=== PATIENT | male | born 1940 | race Caucasian/White ===

== ENCOUNTER 2019-06-19 13:27 | Emergency (ER) | payer MEDICARE, MEDICAID ==
--- NOTE | 2019-06-19 14:07 | ER Document Report ---
ED Psych Disorder / Suicide - General Mode of Arrival: Medic Information source: Patient, Transfer Record TRAVEL OUTSIDE OF THE [place] IN LAST 30 DAYS: No - HPI Patient complains to provider of: Suicidal attempt Onset: Just prior to arrival Onset was: Sudden Quality of pain: No pain Pain Level: Denies Suicide Risk Factors: Age >65, Depressed Suicide Attempt Method: Hanging Associated symptoms: Normal affect, Normal mood Similar symptoms previously: No Recently seen / treated by doctor: No - Related Data Home Medications: SEE MAR <SALMA PETE - Last Filed: 06/19/19 23:02> <KENDRICKRADHAJOANNE - Last Filed: 06/20/19 06:02> <TROY ETIENNE - Last Filed: 06/20/19 13:37> <COURTNEY CHRISTIAN - Last Filed: 06/20/19 15:17> - General Chief Complaint: Suicidal Ideation Stated Complaint: SUICIDAL IDEATION Time Seen by Provider: 06/19/19 13:44 Primary Care Provider: ZAC BERG MD [Primary Care Provider] - Follow up as needed Notes: Patient presents from [facility] after threatening to harm himself. Patient was found with a call light cord wrapped around his neck. Patient states that he became angry because staff were ignoring him and they were not responding to his calls. Patient presently denies any suicidal or homicidal ideation. (SALMA EPTE) - Related Data Allergies/Adverse Reactions: acetaminophen [From Tylenol] Allergy (Verified 06/19/19 13:42) oxycodone Allergy (Verified 06/19/19 13:42) tramadol Allergy (Verified 06/19/19 13:42) Past Medical History - General Information source: Patient, Transfer Record Cannot obtain history due to: Other - pt soft spoken, diff to understand - Social History Smoking Status: Never Smoker Chew tobacco use (# tins/day): No Frequency of alcohol use: None Drug Abuse: None Lives with: Group Home Patient has suicidal ideation: Yes Patient has homicidal ideation: No - Medical History Medical History: Other - dementia GI Medical History: Reports: Other - prostate Ca Musculoskeletal Medical History: Reports Other - parkinson Past Surgical History: Reports: Hx Colostomy <SALMA PETE - Last Filed: 06/19/19 23:02> - Social History Family History: Reviewed & Not Pertinent <COURTNEY CHRISTIAN - Last Filed: 06/20/19 15:17> Review of Systems - Review of Systems Constitutional: No symptoms reported EENT: No symptoms reported Cardiovascular: No symptoms reported Respiratory: No symptoms reported Gastrointestinal: No symptoms reported Genitourinary: No symptoms reported Male Genitourinary: No symptoms reported Musculoskeletal: No symptoms reported Skin: No symptoms reported Hematologic/Lymphatic: No symptoms reported Neurological/Psychological: No symptoms reported <JUAN RSALMA Mabry - Last Filed: 06/19/19 23:02> Physical Exam - General General appearance: Appears well, Alert In distress: None - HEENT Head: Normocephalic, Atraumatic Eyes: Normal Conjunctiva: Normal Nasal: Normal Mouth/Lips: Normal Neck: Normal, Supple, Other - No evidence of trauma to anterior neck, no ligature archer. No: Lymphadenopathy - Respiratory Respiratory status: No respiratory distress Chest status: Nontender Breath sounds: Normal. No: Rales, Rhonchi, Stridor, Wheezing Chest palpation: Normal - Cardiovascular Rhythm: Regular Heart sounds: S1 appreciated, S2 appreciated Murmur: No - Abdominal Inspection: Obese, Other - Colostomy Distension: No distension Bowel sounds: Normal Tenderness: Nontender Organomegaly: No organomegaly - Back Back: Normal, Nontender. No: CVA tenderness - Extremities General upper extremity: Normal inspection General lower extremity: Normal inspection - Neurological Neuro grossly intact: Yes Cognition: Normal Douglas Coma Scale Eye Opening: Spontaneous [place]bert Coma Scale Verbal: Oriented Douglas Coma Scale Motor: Obeys Commands Douglas Coma Scale Total: 15 Speech: Other - Speaks with a very soft tone of voice - Psychological Associated symptoms: Normal affect, Normal mood - Skin Skin Temperature: Warm Skin Moisture: Dry Skin Color: Normal <SALMA PETE - Last Filed: 06/19/19 23:02> - Vital signs Vitals: Temp Pulse Resp BP Pulse Ox 98.6 F 62 15 146/58 H 96 06/19/19 13:55 06/19/19 13:55 06/19/19 13:55 06/19/19 13:55 06/19/19 13:55 Course - Laboratory Result Diagrams: 06/19/19 15:36 06/19/19 15:36 <SALMA PETE - Last Filed: 06/19/19 23:02> - Laboratory Result Diagrams: 06/19/19 15:36 06/19/19 15:36 <JOANNE CARR - Last Filed: 06/20/19 06:02> - Laboratory Result Diagrams: 06/19/19 15:36 06/19/19 15:36 <TROY ETIENNE - Last Filed: 06/20/19 13:37> - Laboratory Result Diagrams: 06/19/19 15:36 06/19/19 15:36 <COURTNEY CHRISTIAN - Last Filed: 06/20/19 15:17> - Re-evaluation Re-evalutation: 06/19/19 17:02 Medication recommendations received from mental health team to include clonidine 0.1 mg p.o. twice daily and Depakote 250 mg p.o. twice daily. Patient can continue his carbidopa levodopa as well as ropinirole. Mental health team plans to keep patient overnight and to reevaluate tomorrow. 06/19/19 21:50 Patient medically clear for discharge or transfer pending mental health evaluation at this time. (SALMA PETE) 06/20/19 06:02 Patient became extremely agitated, aggressive, swinging at staff, staff is asked multiple times for sedating medication. Patient cannot receive antipsychotic medications because of his dopamine agonist situation with Parkinson/Lewy body dementia. Discussed with Dr. Lai, he recommends patient receive 1 mg IM Ativan. (JOANNE CARR) - Vital Signs Vital signs: Temp Pulse Resp BP Pulse Ox 97.6 F 54 L 18 124/66 97 06/20/19 10:32 06/20/19 10:32 06/20/19 05:08 06/20/19 10:32 06/20/19 10:32 - Laboratory Laboratory results interpreted by me: 06/19/19 06/19/19 06/19/19 15:36 15:36 16:44 Hgb 12.9 L RDW 14.3 H Plt Count 134 L Chloride 109 H BUN 30 H Glucose 115 H Urine Ketones TRACE H Urine Blood MODERATE H Salicylates < 1.0 L Acetaminophen < 10 L Labs- Entire Visit 06/19/19 06/19/19 06/19/19 15:36 15:36 16:44 WBC 6.1 RBC 4.62 Hgb 12.9 L Hct 38.2 MCV 83 MCH 27.9 MCHC 33.7 RDW 14.3 H Plt Count 134 L Lymph % (Auto) 18.5 [place] % (Auto) 8.2 Eos % (Auto) 3.0 Baso % (Auto) 0.6 Absolute Neuts (auto) 4.3 Absolute Lymphs (auto) 1.1 Absolute Monos (auto) 0.5 Absolute Eos (auto) 0.2 Absolute Basos (auto) 0.0 Seg Neutrophils % 69.7 Sodium 141.1 Potassium 4.1 Chloride 109 H Carbon Dioxide 24 Anion Gap 8 BUN 30 H Creatinine 0.85 Est GFR ( Amer) > 60 Est GFR (MDRD) Non-Af > 60 Glucose 115 H Calcium 8.7 Total Bilirubin 0.6 Direct Bilirubin 0.2 Neonat Total Bilirubin Not Reportable Neonat Direct Bilirubin Not Reportable Neonat Indirect Bili Not Reportable AST 21 ALT 18 Alkaline Phosphatase 65 Total Protein 6.7 Albumin 3.5 Urine Color YELLOW Urine Appearance TURBID Urine pH 5.0 Ur Specific [place] 1.021 Urine Protein NEGATIVE Urine Glucose (UA) NEGATIVE Urine Ketones TRACE H Urine Blood MODERATE H Urine Nitrite NEGATIVE Urine Bilirubin NEGATIVE Urine Urobilinogen NEGATIVE Ur Leukocyte Esterase NEGATIVE Urine RBC (Auto) 2 Amorphous Sediment Auto TRACE Urine Mucus (Auto) RARE Urine Ascorbic Acid NEGATIVE Salicylates < 1.0 L Urine Opiates Screen Urine Methadone Screen Acetaminophen < 10 L Ur Barbiturates Screen Ur Phencyclidine Scrn Ur Amphetamines Screen U Benzodiazepines Scrn Urine Cocaine Screen U Marijuana (THC) Screen Serum Alcohol < 10 06/19/19 16:44 WBC RBC Hgb Hct MCV MCH MCHC RDW Plt Count Lymph % (Auto) [place] % (Auto) Eos % (Auto) Baso % (Auto) Absolute Neuts (auto) Absolute Lymphs (auto) Absolute Monos (auto) Absolute Eos (auto) Absolute Basos (auto) Seg Neutrophils % Sodium Potassium Chloride Carbon Dioxide Anion Gap BUN Creatinine Est GFR ( Amer) Est GFR (MDRD) Non-Af Glucose Calcium Total Bilirubin Direct Bilirubin Neonat Total Bilirubin Neonat Direct Bilirubin Neonat Indirect Bili AST ALT Alkaline Phosphatase Total Protein Albumin Urine Color Urine Appearance Urine pH Ur Specific [place] Urine Protein Urine Glucose (UA) Urine Ketones Urine Blood Urine Nitrite Urine Bilirubin Urine Urobilinogen Ur Leukocyte Esterase Urine RBC (Auto) Amorphous Sediment Auto Urine Mucus (Auto) Urine Ascorbic Acid Salicylates Urine Opiates Screen NEGATIVE Urine Methadone Screen NEGATIVE Acetaminophen Ur Barbiturates Screen NEGATIVE Ur Phencyclidine Scrn NEGATIVE Ur Amphetamines Screen NEGATIVE U Benzodiazepines Scrn NEGATIVE Urine Cocaine Screen NEGATIVE U Marijuana (THC) Screen NEGATIVE Serum Alcohol (SALMA PETE) Discharge <SALMA PETE - Last Filed: 06/19/19 23:02> <JOANNE CARR - Last Filed: 06/20/19 06:02> <TROY ETIENNE - Last Filed: 06/20/19 13:37> <COURTNEY CHRISTIAN - Last Filed: 06/20/19 15:17> - Discharge Clinical Impression: Suicidal ideation Condition: Stable Disposition: HOME, SELF-CARE Additional Instructions: You have been evaluated by both medical and behavioral health teams for suicidal ideation and have been deemed appropriate for discharge. While in the emergency department you received the following services: Medical screening and assessment, nursing services, dietary services, pharmacological services, one-on-one counseling and/or psychotherapy, environmental services, and continuous observation by a patient occupational health and safety adviser. Medication recommendations have been provided and are as follows: please continue home medications; please continue to take Depakote 250MG, twice a day; and please continue to take Clonidine 0.1, twice a day. You are being returned to the care of your assisted living facility, [facility]. Please follow up with a mental health provider for medication management. AT ANY TIME, IF YOUR SYMPTOMS CHANGE SIGNIFICANTLY OR WORSEN OR YOU DEVELOP NEW SYMPTOMS, RETURN TO THE EMERGENCY DEPARTMENT IMMEDIATELY FOR RE-EVALUATION. Prescriptions: Clonidine HCl [Catapres 0.1 mg Tablet] 0.1 mg PO Q12 #20 tablet Divalproex Sodium [Depakote] 250 mg PO BID #20 tablet. Referrals: ZAC BERG MD [Primary Care Provider] - Follow up as needed
--- NOTE | 2019-06-19 15:37 | PSYCHOLOGICAL NOTE ---
Psych Note - Psych Note Date seen by psych provider: 06/19/19 Time seen by psych provider: 14:15 Psych Note: Reason for Consult: Suicidal ideation Clinician attempted evaluation. Patient is extremely difficult to understand. He attempts to communicate; unfortunately, only one word in about 30 can be understood. It appears the patient is stating he was upset because he was calling staff and they did not come. He confirmed he wrapped the call childress around his neck but denies wanting to . He attempted to provided history and medications; however, clinician could only understand "Parkinson's.... 25 years.... Requip." Review of documentation sent over by [facility] Aramb[facility] indicates the patient has a diagnosis of dementia with Lewy bodies, Colotomy, Parkinson's disease, prostate cancer, Major depressive disorder; recurrent, chronic pain, always disorientat ed,history of falling, difficulty walking and extreme difficult with speech. Patient reportedly has a neurostimulator. Current medications include Sinemet 25-250mg four times daily for Parkinson Requip 4mg twice daily for restless leg Inbrija Capsule 42mg -2 capsule inhale orally as needed for symptoms of Parkinson- do not exceed 5 doses (10 capsules) in 24 hours Clinician contacted [facility] and spoke with attending morning nurse, Rupal. She reports that the patient was agitated all morning and even cursed out staff and kicked him out of the room. They continue to make frequent trips into the room to check on him. The last time they went in they found the patient with his call childress wrapped around his neck and he stated "jump." She states that he later reported that he thought if he did something like this he be taken more seriously. She reports she does not know if it this is for attention however the patient's did report she has noticed an increase in depression recently. She disclosed that upon cleaning the patient's room to ensure it was safe when the patient returned she found a bag of rocks only 50 different types of pills. There is concern that the is providing medications to the patient that he is not prescribed and/or overmedicating. Clinician contacted the patient , Amie. She reports she had a stroke and has a pacemaker so was unable to care for the patient anymore. She reports the patient has been in a fpc for about 16 months. She discloses that when he first entered the fpc it was "extremely hard" however he did end up adjusting. She reports that unfortunately in March with his previous fpc close down so he was transferred to [place]. She reports that the patient cannot talk, walk, write, or drive they even had to get rid of the boat; "I hate to say this but I can see why he attempted this is not a life anymore." She reports they have been for 54 years and she cannot understand him she just does all the talking when she comes to visit to update him on family and friends. She reports that she does get to come and see him and takes them out and has a pillbox that has medications and it however the pillbox was lost so she put them in a vitamin D bottle. She states that the patient was complaining the nurses were not giving him medications when he needed them. She reports she understands because they have a 2-hour window to provide the medications however the patient is used to controlling his own medications. She states that he would take his medications very religiously and knew when they were wearing off. She states that if he had something to do he would take an extra 1 which she reports his neurologist was aware of; unfortunately, the fpc is unable to do anything like this. She reports that the last time they went to the neurologist they added a new medication which puts a capsule an inhaler and he can use that in between his Sinemet doses. She states that the physician wrote a letter stating that he should have those pills in his room for when he needs them and thinks that that might be the medications that the staff found him in his room. PLEASE DO NOT GIVE ANY NARCOTICS OR ANTIPSYCHOTICS- patient has a history of increased hallucinations and aggression when given these medications per . (Patient does have baseline hallucinations due to his medical conditions; please only use redirection). Medication recommendations per [facility]'s contracted psychiatrist Dr. Dorys UMANA are as follows: Continue home medications Please start Clonidine 0.1mg twice daily - please check BP prior to providing to ensure medically appropriate Please start Depakote 250mg twice daily Impression/Plan:Patient is recommended for overnight mental health observation. Patient has significant medical complications however has a history of diagnosed major depressive disorder that is recurrent and is not on any psychiatric medications. Patient engaged in a suicidal gesture, and while it does not appear the patient is truly suicidal,the patient's has reported to [facility] staff she has noted an increase in depression. There is concern the patient is not being medicated correctly because of patient's reported history of self-medicating per . Clinician notes lab work is still pending. This information is crucial to determining plan of care for the patient due to both his age and medical complications. Medication recommendations have been provided and patient will be re-evaluated. Dr. Garcia was consulted to care management of this patient; attending physicians in agreement with recommendations and disposition.
[2019-06-19 16:12] LABS: ABSOLUTE EOSINOPHILS # (AUTO) 0.2 10^3/uL (0.0-0.6); ABSOLUTE LYMPHOCYTES (AUTO) 1.1 10^3/uL (0.5-4.7); ABSOLUTE MONOCYTES (AUTO) 0.5 10^3/uL (0.1-1.4); ABSOLUTE NEUT (AUTO) 4.3 10^3/uL (1.7-8.2); BASOPHILS % (AUTO) 0.6 % (0-2); HEMATOCRIT 38.2 % (37.9-51.0); HEMOGLOBIN 12.9 g/dL (13.5-17.0); LYMPHOCYTES % (AUTO) 18.5 % (13-45); MEAN CORPUSCULAR HEMOGLOBIN 27.9 pg (27.0-33.4); MEAN CORPUSCULAR HGB CONC 33.7 g/dL (32.0-36.0); MEAN CORPUSCULAR VOLUME 83 fl (80-97); MONOCYTES % (AUTO) 8.2 % (3-13); PLATELET COUNT 134 10^3/uL (150-450); RED BLOOD COUNT 4.62 10^6/uL (4.35-5.55); RED CELL DISTRIBUTION WIDTH 14.3 % (11.5-14.0); SEGMENTED NEUTROPHILS % (AUTO) 69.7 % (42-78); TOTAL CELLS COUNTED % (AUTO) 100 %; WHITE BLOOD COUNT 6.1 10^3/uL (4.0-10.5)
--- NOTE | 2019-06-19 16:20 | EKG REPORT ---
SEVERITY:- ABNORMAL ECG - SINUS RHYTHM VENTRICULAR PREMATURE COMPLEX PROMINENT P WAVES, NONDIAGNOSTIC LVH WITH IVCD AND SECONDARY REPOL ABNRM : Confirmed by: Monik Montoya MD 19-Jun-2019 16:18:49
[2019-06-19 16:31] LABS: ALBUMIN 3.5 g/dL (3.5-5.0); ALKALINE PHOSPHATASE 65 U/L (38-126); ANION GAP 8 (5-19); ASPARTATE AMINO TRANSFERASE 21 U/L (17-59); BILIRUBIN,DIRECT 0.2 mg/dL (0.0-0.4); BILIRUBIN,TOTAL 0.6 mg/dL (0.2-1.3); BLOOD UREA NITROGEN 30 mg/dL (7-20); CALCIUM 8.7 mg/dL (8.4-10.2); CARBON DIOXIDE 24 mmol/L (22-30); CHLORIDE 109 mmol/L (98-107); GLUCOSE 115 mg/dL (75-110); POTASSIUM 4.1 mmol/L (3.6-5.0); TOTAL PROTEIN 6.7 g/dL (6.3-8.2)
[2019-06-19 16:32] LABS: ACETAMINOPHEN < 10 ug/mL (10-30); ALCOHOL < 10 mg/dL (NONE DETECTED); SALICYLATE < 1.0 mg/dL (2.0-20.0)
[2019-06-19] MEDS ORDERED: CARBIDOPA/LEVODOPA 25-250 MG TABLET PO ONE (16:46)
[2019-06-19] MEDS: ROPINIROLE HCL 2 MG TABLET PO SCH (18:36)
[2019-06-19] MEDS: CLONIDINE HCL 0.1 MG TABLET PO SCH (18:36)
[2019-06-19] MEDS: DIVALPROEX SODIUM 250 MG TAB.SR.24H PO SCH (18:37)
[2019-06-19] MEDS ORDERED: CARBIDOPA/LEVODOPA 25-250 MG TABLET PO SCH ×2 (20:00→21:00)
[2019-06-19 20:36] LABS: AMORPHOUS SEDIMENT,URINE TRACE /HPF; APPEARANCE,URINE TURBID; BILIRUBIN,URINE NEGATIVE (NEGATIVE); COLOR,URINE YELLOW; GLUCOSE, URINE NEGATIVE (NEGATIVE); KETONES,URINE TRACE mg/dL (NEGATIVE); LEUKOCYTE ESTERASE,URINE NEGATIVE (NEGATIVE); NITRITE,URINE NEGATIVE (NEGATIVE); PROTEIN,URINE NEGATIVE (NEGATIVE); URINE SPECIFIC GRAVITY 1.021; UROBILINOGEN,URINE NEGATIVE mg/dL (<2.0)
[2019-06-19 20:43] LABS: URINE AMPHETAMINES SCREEN NEGATIVE; URINE BARBITURATES SCREEN NEGATIVE; URINE BENZODIAZEPINES SCREEN NEGATIVE; URINE COCAINE SCREEN NEGATIVE; URINE MARIJUANA (THC) SCREEN NEGATIVE; URINE METHADONE SCREEN NEGATIVE; URINE PHENCYCLIDINE SCREEN NEGATIVE
[2019-06-19] MEDS ORDERED: CARBIDOPA/LEVODOPA 25-250 MG TABLET ONE (22:56)
[2019-06-20] MEDS ORDERED: LORAZEPAM INJ 2 MG/1 ML VIAL IM ONE (06:01)
[2019-06-20] MEDS: CARBIDOPA/LEVODOPA 25-250 MG TABLET PO SCH ×2 (09:00→11:22)
[2019-06-20] MEDS: DIVALPROEX SODIUM 250 MG TAB.SR.24H PO SCH (10:13)
[2019-06-20] MEDS: CLONIDINE HCL 0.1 MG TABLET PO SCH (10:13)
[2019-06-20] MEDS: ROPINIROLE HCL 2 MG TABLET PO SCH (10:14)
--- NOTE | 2019-06-20 15:15 | ER Document Report ---
Doctor's Note Notes: 06/20/19 15:12 Progress note: Patient is a 79-year-old white male with a history of dementia who came to the department because of aggressive behavior and threatening suicidal ideations. Reevaluation of the patient today shows him to be doing well. He denies any medical complaints. He is rather coherent given his baseline mental status. He denies any further suicidal or homicidal ideations. Vital signs are within normal limits. He was seen by psychiatry and cleared for return to his rest home. He will be transported by [facility] back to his rest home. Stable and appropriate for discharge and outpatient follow-up and care. Heart rate was regular rate and rhythm, lungs clear to auscultation bilaterally. Discussed with attending, who agreed with plan of care.
[2019-06-20 15:17] VITALS: BP 141/56
--- NOTE | 2019-06-21 01:11 | PSYCHOLOGICAL NOTE ---
Psych Note - Psych Note Date seen by psych provider: 06/20/19 Time seen by psych provider: 12:52 - Re evaluation Psych Note: Presenting Problem: Patient is in the ED voluntarily for suicidal ideation with attempt (had call childress wrapped around neck and when people came in said jump) at [facility] yesterday. A medication regimen (continue home medications, add Clonidine 0.1 MG BID and Depakote 250MG BID) was started yesterday to address depression/mood and agitation/sleep while also being mindful of dementia and Parkinson's diagnoses. No side effects reported, noted or observed. Today he denied suicide attempt and current suicidal ideation. He identified he will be at [facility] for the rest of his life, he wanted to go back and they take good care of him. He inquired about medication changes when informed there had been some. Patient was alert and oriented to self and situation (orientation is expected to be poor given dementia and Parkinson's), mood was euthymic with congruent affect, thoughts seemed linear and organized, he answered questions when addressed and even asked questions, he was engaged and did not appear to be responding to internal stimuli given appropriate interactions. [facility] team Physician Recruiter coordinated care with [facility] for discharge back to their facility. [employer] services being utilized for transportation. Diagnosis: Suicidal Ideation Depression Dementia/Parkinson's by History Impression/Plan: Patient is cleared from acute psychiatric services. He denied current SI, denied there being an attempt yesterday (he may not recall given dementia and Parkinson's diagnoses), he answered questions, asked questions (appropriate), identified he will live at [facility] the rest of his life due to medical issues and said they take care of him there. 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 Consulted with Dr. Garcia regarding the management and care of patient. ED Physician in agreement with recommendations.
== END 2019-06-20 15:31 | disposition home or self-care (01) ==
LOC: ER 13:27
DX: T14.91XA Suicide attempt, initial encounter (principal); X83.8XXA Intentional self-harm by other specified means, initial encounter; Y92.129 Unspecified place in nursing home as the place of occurrence of the external cause; G20 Parkinson's disease; F02.81 Dementia in other diseases classified elsewhere, unspecified severity, with behavioral disturbance; Z79.899 Other long term (current) drug therapy; Z93.3 Colostomy status; Z85.46 Personal history of malignant neoplasm of prostate; Z88.8 Allergy status to other drugs, medicaments and biological substances; Z88.6 Allergy status to analgesic agent; Z88.5 Allergy status to narcotic agent
CPT/HCPCS: 93005; 99285; 36415; 80307 ×4; 85025; 80053; 81001; 93010; A9270 ×8; J3490

== ENCOUNTER 2019-07-01 20:55 | Emergency (ER) | payer MEDICARE, MEDICAID ==
[2019-07-01 22:04] LABS: ABSOLUTE EOSINOPHILS # (AUTO) 0.1 10^3/uL (0.0-0.6); ABSOLUTE LYMPHOCYTES (AUTO) 1.2 10^3/uL (0.5-4.7); ABSOLUTE MONOCYTES (AUTO) 0.5 10^3/uL (0.1-1.4); ABSOLUTE NEUT (AUTO) 4.7 10^3/uL (1.7-8.2); BASOPHILS % (AUTO) 0.6 % (0-2); EOSINOPHILS % (AUTO) 1.5 % (0-6); HEMATOCRIT 38.9 % (37.9-51.0); HEMOGLOBIN 12.9 g/dL (13.5-17.0); LYMPHOCYTES % (AUTO) 18.1 % (13-45); MEAN CORPUSCULAR HEMOGLOBIN 27.8 pg (27.0-33.4); MEAN CORPUSCULAR HGB CONC 33.1 g/dL (32.0-36.0); MEAN CORPUSCULAR VOLUME 84 fl (80-97); MONOCYTES % (AUTO) 7.1 % (3-13); PLATELET COUNT 129 10^3/uL (150-450); RED BLOOD COUNT 4.63 10^6/uL (4.35-5.55); RED CELL DISTRIBUTION WIDTH 14.7 % (11.5-14.0); SEGMENTED NEUTROPHILS % (AUTO) 72.7 % (42-78); TOTAL CELLS COUNTED % (AUTO) 100 %; WHITE BLOOD COUNT 6.4 10^3/uL (4.0-10.5)
[2019-07-01 22:09] LABS: ALBUMIN 3.5 g/dL (3.5-5.0); ALKALINE PHOSPHATASE 67 U/L (38-126); ANION GAP 9 (5-19); ASPARTATE AMINO TRANSFERASE 18 U/L (17-59); BILIRUBIN,TOTAL 0.4 mg/dL (0.2-1.3); BLOOD UREA NITROGEN 31 mg/dL (7-20); CALCIUM 8.8 mg/dL (8.4-10.2); CARBON DIOXIDE 27 mmol/L (22-30); CHLORIDE 106 mmol/L (98-107); CREATINE KINASE 42 U/L (55-170); GLUCOSE 131 mg/dL (75-110); POTASSIUM 4.2 mmol/L (3.6-5.0); TOTAL PROTEIN 6.3 g/dL (6.3-8.2)
[2019-07-01 22:21] LABS: CREATINE KINASE MB 0.82 ng/mL (<4.55)
[2019-07-01 22:24] LABS: TROPONIN I < 0.012 ng/mL
--- NOTE | 2019-07-01 22:40 | ER Document Report ---
Entered by CHIQUI RODRIGUEZ SCRIBE 07/01/19 2144 Acting as scribe for:TERESITA GÓMEZ IV, MD ED General - General Chief Complaint: Chest Pain Stated Complaint: CHEST PAINS Time Seen by Provider: 07/01/19 21:43 Primary Care Provider: ZAC BERG MD [Primary Care Provider] - Follow up as needed Information source: Patient, Emergency Med Personnel Notes: This 79 year old male patient brought in by EMS from [facility] presents to the ED today with complaints of chest pain that occurred prior to arrival. [facility] staff reports that the patient complained of chest pain for x2 hours. EMS reports that the patient was found in his room yelling and throwing his arms around upon arrival, but was calm and sleeping en route to the ED. EMS states that the called and stated that the patient was recently put on Depakote and Clonidine and thinks that they are making him act out and behave differently. EMS reports that the patient has a history of Parkinson's disease and dementia. Patient states that he does not have chest pain at this time. Patient denies fever or chills. TRAVEL OUTSIDE OF THE [place] IN LAST 30 DAYS: No - Related Data Allergies/Adverse Reactions: acetaminophen [From Tylenol] Allergy (Verified 07/01/19 21:03) oxycodone Allergy (Verified 07/01/19 21:03) tramadol Allergy (Verified 07/01/19 21:03) Past Medical History - General Information source: Patient, Emergency Med Personnel, [facility] Records - Social History Smoking Status: Former Smoker Cigarette use (# per day): No Chew tobacco use (# tins/day): No Smoking Education Provided: No Frequency of alcohol use: None Drug Abuse: None Family History: Reviewed & Not Pertinent Patient has suicidal ideation: No Patient has homicidal ideation: No Neurological Medical History: Reports: Hx Parkinson's Disease Psychiatric Medical History: Reports: Hx Dementia Past Surgical History: Reports: Hx Colostomy Review of Systems - Review of Systems Constitutional: See HPI. denies: Chills, Fever EENT: No symptoms reported Cardiovascular: See HPI, Chest pain Respiratory: No symptoms reported Gastrointestinal: No symptoms reported Genitourinary: No symptoms reported Male Genitourinary: No symptoms reported Musculoskeletal: No symptoms reported Skin: No symptoms reported Hematologic/Lymphatic: No symptoms reported Neurological/Psychological: No symptoms reported -: Yes All other systems reviewed and negative Physical Exam - Vital signs Vitals: Resp Pulse Ox 16 95 07/01/19 21:00 07/01/19 21:00 - General General appearance: Alert - HEENT Head: Normocephalic, Atraumatic Eyes: Normal Pupils: PERRL - Respiratory Respiratory status: No respiratory distress Chest status: Nontender Breath sounds: Normal Chest palpation: Normal - Cardiovascular Rhythm: Regular Heart sounds: Normal auscultation Murmur: No Friction rub: No Gallop: None auscultated - Abdominal Inspection: Normal Distension: No distension Bowel sounds: Normal Tenderness: Nontender - Abdomen soft Organomegaly: No organomegaly - Back Back: Normal, Nontender - Extremities General upper extremity: Normal inspection General lower extremity: Normal inspection - Neurological Neuro grossly intact: Yes Speech: Other - Rambling speech - Psychological Associated symptoms: Normal affect, Normal mood - Skin Skin Temperature: Warm Skin Moisture: Dry Skin Color: Normal Course - Re-evaluation Re-evalutation: 07/02/19 02:07 Results of ED MSE discussed with patient. Patient had 2 EKGs checked, both of which were unchanged from prior EKGs and has had 2 troponins both less than 0.012. Based on patient's evaluation I do not believe that the patient is having a acute coronary event. Emergency signs and symptoms, reasons to return to the emergency department discussed with patient prior to discharge. - Vital Signs Vital signs: Temp Pulse Resp BP Pulse Ox 17 131/91 H 93 07/02/19 02:50 07/02/19 02:50 07/02/19 02:50 - Laboratory Result Diagrams: 07/01/19 21:04 07/01/19 21:04 Laboratory results interpreted by me: 07/01/19 07/01/19 07/01/19 21:04 21:04 21:04 Hgb 12.9 L RDW 14.7 H Plt Count 129 L BUN 31 H Glucose 131 H Creatine Kinase 42 L Valproic Acid 44.7 L - Diagnostic Test Radiology reviewed: Reports reviewed - EKG Interpretation by Me Additional EKG results interpreted by me: 07/01/19 22:41 EKG obtained on 07/01/2019 at 2114 hrs. was interpreted by this MD. Findings: Normal sinus rhythm, rate 69, P waves proceed QRS complexes, QRS complex appears narrow, normal axis, there are no obvious patterns of ST segment elevation or depression to suggest acute myocardial ischemia or infarction. EKG was compared to prior EKG done at this facility on 06/19/2019. Morphology is grossly similar. 07/02/19 01:25 Repeat EKG obtained at 0106 hrs. on 07/02/2019 was interpreted by this MD. Impression sinus rhythm, rate 57, morphology is grossly unchanged from prior EKG during this visit, P waves preceding QRS complexes, QRS complexes appear narrow, there are no obvious patterns of ST elevation or depression to suggest acute myocardial ischemia or infarction. Impression sinus bradycardia with nonspecific ST segments. Discharge - Discharge Clinical Impression: Chest pain Qualifiers: Chest pain type: unspecified Qualified Code(s): R07.9 - Chest pain, unspecified Condition: Good Disposition: HOME-ASSISTED LIVING Instructions: Chest Pain of Unclear Cause ([facility]) Additional Instructions: Return to the Emergency Department without delay if any worse. HOME CARE INSTRUCTIONS & INFORMATION: Thank you for choosing us for your medical needs. We hope you're satisfied with the care you received. After you leave, you must properly care for your problem and, at the same time, observe its progress. Any condition can change. Some illnesses can change rapidly over hours or days. If your condition worsens, return to the Emergency Department or see your physician promptly. ABOUT YOUR X-RAYS AND EKG'S: If you had an EKG or X-rays taken, they have been read by the Emergency Physician. The X-rays and EKG's will also be read by a Radiologist or Family Advocate within 24 hours. If discrepancies are noted, you will be notified by telephone. Please be certain the ED has a correct telephone number & address where you can be reached. Also, realize that some fractures or abnormalities do not show up on initial X-rays. If your symptoms continue, see your physician. ABOUT YOUR LABORATORY TEST: If you had laboratory tests, the results have been reviewed by the Emergency Physician. Some test results (for example cultures) may not be available for several days. You will be contacted if any test result shows you need additional treatment. Please be certain the ED has a correct telephone number and address where you can be reached. ABOUT YOUR MEDICATIONS: You will receive instructions on how to take your medicine on the prescription label you receive. Additional information may be provided by the Pharmacy. If you have questions afterwards, call the ED for clarification or further instructions. Some prescribed medications may cause drowsiness. Do not perform tasks such as driving a car or operating machinery without consulting your Pharmacist. If you feel you need a refill of pain medication, your condition will need re-evaluation. Please do not call for a refill of any medication. ABOUT YOUR SIGNATURE: Signature of this document acknowledges to followin. Understanding that you received emergency treatment and that you may be released before al medical problems are known or treated. Please be certain the ED has a correct phone number & address where you can be reached. 2. Acknowledgement that you will arrange for follow-up care as recommended. 3. Authorization for the Emergency Physician to provide information to your follow-up Physician in order to maximize your care. AT ANY TIME, IF YOUR SYMPTOMS CHANGE SIGNIFICANTLY OR WORSEN OR YOU DEVELOP NEW SYMPTOMS, RETURN TO THE EMERGENCY DEPARTMENT IMMEDIATELY FOR RE-EVALUATION. OUR GOAL IS TO PROVIDE EXCELLENT MEDICAL CARE! WE HOPE THAT WE HAVE MET YOUR EXPECTATIONS DURING YOUR EMERGENCY DEPARTMENT VISIT AND THAT YOU FEEL YOU HAVE RECEIVED EXCELLENT CARE! Referrals: ZAC BERG MD [Primary Care Provider] - 07/02/19 I personally performed the services described in the documentation, reviewed and edited the documentation which was dictated to the scribe in my presence, and it accurately records my words and actions.
--- NOTE | 2019-07-01 22:59 | RADIOLOGY REPORT (SQ) ---
EXAM DESCRIPTION: [facility]: XR CHEST 1 VIEW CLINICAL HISTORY: 79 years Male; CHEST PAIN; COMPARISON: None. FINDINGS: Lungs are clear, with no focal infiltrate, pneumothorax, or pleural effusion. Heart size is difficult to evaluate on this AP portable exam. The superior mediastinum appears wide, with prominent aortic arch. Left shoulder replacement is noted. Severe chronic changes of the right shoulder are partially visualized, somewhat obscured by electronic device in the right chest wall, leads extending into the neck. IMPRESSION: 1. Possible thoracic aortic aneurysm. Consider upright PA and lateral radiographs for more reliable assessment. 2. No acute pulmonary infiltrates
--- NOTE | 2019-07-02 02:58 | RADIOLOGY REPORT (SQ) ---
EXAM DESCRIPTION: XR CHEST 2 VIEWS COMPLETED DATE/TME: 07/02/2019 02:09 CLINICAL HISTORY: 79 years, Male, ? abnormal finding on pcxr, upright recommended COMPARISON: July 01, 2019 NUMBER OF VIEWS: 2 TECHNIQUE: LIMITATIONS: None. FINDINGS: Enlarged cardiac silhouette, similar to prior. Chronic parenchymal lung change. No effusion or pneumothorax. No adverse change. Left shoulder prosthesis is again seen with laxity. 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 The neurostimulator is again identified, stable IMPRESSION: Chronic change, no adverse change copyright 2011 [employer]- All Rights Reserved
[2019-07-02 03:47] VITALS: BP 155/61
--- NOTE | 2019-07-02 06:06 | EKG REPORT ---
SEVERITY:- ABNORMAL ECG - SINUS RHYTHM LVH WITH SECONDARY REPOLARIZATION ABNORMALITY : Confirmed by: Yg Barnard MD 02-Jul-2019 06:05:48
--- NOTE | 2019-07-02 06:09 | EKG REPORT ---
SEVERITY:- ABNORMAL ECG - SINUS RHYTHM LVH WITH SECONDARY REPOLARIZATION ABNORMALITY : Confirmed by: Yg Barnard MD 02-Jul-2019 06:09:21
== END 2019-07-02 03:47 | disposition home health service (06) ==
LOC: ER 20:55
DX: R07.9 Chest pain, unspecified (principal); G20 Parkinson's disease; F02.80 Dementia in other diseases classified elsewhere, unspecified severity, without behavioral disturbance, psychotic disturbance, mood disturbance, and anxiety; Z79.899 Other long term (current) drug therapy; Z88.8 Allergy status to other drugs, medicaments and biological substances; Z87.891 Personal history of nicotine dependence
CPT/HCPCS: 36415; 71045; 71046; 80053; 80164; 82550; 82553; 84484; 85025; 93005; 93010; 99285

== ENCOUNTER 2020-01-25 13:01 | Emergency (ER) | payer MEDICARE, MEDICAID ==
[2020-01-25 13:21] VITALS: BP 135/53
[2020-01-25] MEDS ORDERED: LIDOCAINE 1% INJ-PF (10 MG/ML) 30 ML SDV INJ ONE (13:49)
--- NOTE | 2020-01-25 14:12 | ER Document Report ---
ED Head/Face/Scalp Injury - General Chief Complaint: Fall Injury Stated Complaint: FALL HEAD INJURY Primary Care Provider: ZAC BERG MD [Primary Care Provider] - Follow up as needed Information source: Patient Notes: 79-year-old male arrives by EMS after he fell at [facility] today. Patient was transferred from [facility] to [facility] @ 1week ago. Patient is DNR. He has Lewy body dementia. He has Parkinson's disease. He has a neurostimulator very obvious in his right parietal with a wiring underneath the scalp on palpation. Patient has laceration to left superior eyebrow. Lacerations approximately 2 and half centimeters in length. There is nonbleeding at this time. Steri-Strips have failed to secure wound edges and the width is approximately [address] scan on my order of head and neck patient had wound cleansed with Shur-Clens by myself. With sterile technique and gloves and dressings, patient had Steri-Strips removed and wound edges secured with 36 0 Prolene with interrupted simple sutures. Patient tolerated this well. Then wound edges were firmly secured with Dermabond by myself. A Band-Aid was placed over this by nursing staff. Patient slept throughout most o f the event. TRAVEL OUTSIDE OF THE [place] IN LAST 30 DAYS: No - HPI Patient complains to provider of: Contusion, Laceration, Swelling Injury to: Eyebrow Location of problem: Eyebrow Occurred: Just prior to arrival Where: [facility] Timing: Still present Context: Fell, Laceration Loss consciousness: Unsure Notes: Patient nonverbal throughout PHYSICAL EXAMINATION: GENERAL: Well-appearing, well-nourished and in no acute distress. HEAD: Atraumatic, normocephalic. EYES: Pupils equal round and reactive to light, extraocular movements intact, sclera anicteric, conjunctiva are normal. ENT: nares patent, oropharynx clear without exudates. Moist mucous membranes. NECK: Normal range of motion, supple without lymphadenopathy LUNGS: Breath sounds clear to auscultation bilaterally and equal. No wheezes rales or rhonchi. HEART: Regular rate and rhythm without murmurs ABDOMEN: Soft, nontender, normoactive bowel sounds. No guarding, no rebound. No masses appreciated. EXTREMITIES: Normal range of motion, no pitting or edema. No cyanosis. NEUROLOGICAL: No focal neurological deficits. Moves all extremities spont aneously and on command. PSYCH: Normal mood, normal affect. SKIN: Warm, Dry, normal turgor, no rashes or lesions noted. In hallway 3 and suturing. - Related Data Allergies/Adverse Reactions: acetaminophen [From Tylenol] Allergy (Verified 01/25/20 13:12) oxycodone Allergy (Verified 01/25/20 13:12) tramadol Allergy (Verified 01/25/20 13:12) Home Medications: see list from vitor davey on chart Past Medical History - General Information source: Emergency Med Personnel Cannot obtain history due to: Mentally challenged - Social History Smoking Status: Unknown if Ever Smoked Cigarette use (# per day): No Chew tobacco use (# tins/day): No Smoking Education Provided: No Frequency of alcohol use: Rare Drug Abuse: None Lives with: [facility] Family History: Reviewed & Not Pertinent Patient has suicidal ideation: No Patient has homicidal ideation: No Neurological Medical History: Reports: Hx Parkinson's Disease GI Medical History: Reports: Other - left lower quad ostomy Psychiatric Medical History: Reports: Hx Dementia, Hx Depression Past Surgical History: Reports: Hx Abdominal Surgery - lt colostomy, Hx Colostomy, Hx Orthopedic Surgery - Hip Review of Systems - Review of Systems -: Yes ROS unobtainable due to patient's medical condition EENT: See HPI, Other - Exam laceration left eyebrow Cardiovascular: No symptoms reported Respiratory: No symptoms reported Gastrointestinal: No symptoms reported Genitourinary: No symptoms reported Male Genitourinary: No symptoms reported Musculoskeletal: No symptoms reported Hematologic/Lymphatic: No symptoms reported Neurological/Psychological: No symptoms reported - September 14 Physical Exam - Vital signs Vitals: Temp Pulse Resp BP Pulse Ox 97.9 F 56 L 16 135/53 H 100 01/25/20 13:12 01/25/20 13:12 01/25/20 13:12 01/25/20 13:12 01/25/20 13:12 Interpretation: Normal - HEENT Head: Tenderness, Other - laceration left eyebrow Course - Vital Signs Vital signs: Temp Pulse Resp BP Pulse Ox 97.9 F 56 L 16 135/53 H 100 01/25/20 13:12 01/25/20 13:12 01/25/20 13:12 01/25/20 13:12 01/25/20 13:12 - Diagnostic Test Radiology reviewed: Reports reviewed - disc disease and nothing acute in head/meningioma per radiology Procedures - Laceration/Wound Repair Left Face Time completed: 14:25 Wound length (cm): 2.5 Wound's Depth, Shape: Linear Laceration pre-procedure: Shur-Clens applied Anesthetic type: Other - none Volume Anesthetic (mLs): 0 Wound explored: No foreign body removed Wound Debrided: Minimal Wound Repaired With: Sutures, Dermabond Suture Size/Type: 6:0, Prolene Number of Sutures: 3 Layer Closure?: No Post-procedure wound care: Sterile dressing applied Post-procedure NV exam normal: Yes Complications: No Critical Care Note - Critical Care Note Comments: I advised family member of results. Also advised sutures out in around 7 to 10 days. Discharge - Discharge Clinical Impression: Other kyphoscoliosis and scoliosis, Meningioma, cerebral Fall Qualifiers: Encounter type: initial encounter Qualified Code(s): W19.XXXA - Unspecified fall, initial encounter Laceration of face Qualifiers: Encounter type: initial encounter Qualified Code(s): S01.81XA - Laceration without foreign body of other part of head, initial encounter Dementia Qualifiers: Dementia type: Lewy body dementia Dementia behavioral disturbance: without be havioral disturbance Qualified Code(s): G31.83 - Dementia with Lewy bodies Condition: Good Disposition: HOME, SELF-CARE Additional Instructions: Follow-up with personal doctor return to ER as needed continue with current regime medication sanders.; Keep wound clean and dry sutures out(three 6-0 sutu res) in 7 to 10 days. Referrals: ZAC BERG MD [Primary Care Provider] - Follow up as needed
--- NOTE | 2020-01-25 15:22 | RADIOLOGY REPORT (SQ) ---
EXAM DESCRIPTION: CT HEAD WITHOUT IMAGES COMPLETED DATE/TIME: 01/25/2020 2:29 pm REASON FOR STUDY: fall COMPARISON: None. TECHNIQUE: Axial images acquired through the brain without intravenous contrast. Images reviewed wi th bone, brain and subdural windows. Additional sagittal and coronal reconstructions were generated. Images stored on PACS. All CT scanners at this facility use dose modulation, iterative reconstruction, and/or weight based d osing when appropriate to reduce radiation dose to as low as reasonably achievable (ALARA). [facility]: Dose Right [facility]: CareDose [facility]: Dose Right [facility]: Teradose 4D [facility]: Smart [employer] RADIATION DOSE: CT Rad equipment meets quality standard of care and radiation dose reduction techniq ues were employed. CTDIvol: 53.2 mGy. DLP: 1070 mGy-cm. LIMITATIONS: None. FINDINGS: VENTRICLES: Prominent, commensurate with the sulci. The cisterns are patent. CEREBRUM: A 8-9 mm calcified area in the right posterior parietal region, axial image 27, series 2, may represent a meningioma. No hemorrhage. No midline shift. No evidence for acute infarction. Nor mal fair/white matter differentiation. No areas of low density in the white matter. CEREBELLUM: No masses. No hemorrhage. No alteration of density. No evidence for acute infarction. EXTRAAXIAL SPACES: Age related involutional change. No fluid collections. Mild prominence in the r egion of the right cavernous sinus may be related to patient positioning. OBITS AND GLOBE: No intra- or extraconal masses. Normal contour of globe without masses. CALVARIUM: Bilateral stimulator catheters with the tips in the region of the right and left side of the midbrain. These findings produce artifact limiting detail somewhat. No fracture. PARANASAL SINUSES: No fluid or mucosal thickening. SOFT TISSUES: No mass or hematoma. OTHER: Mild atherosclerotic changes involving the cavernous portion of the internal carotid arteries . IMPRESSION: 1. No acute intracranial abnormality. 2. An extra-axial calcified area in the right posterior parietal region may represent a small mening ioma. 3. Additional findings as above. EVIDENCE OF ACUTE STROKE: NO COMMENT: Quality ID # [id number]: Final reports with documentation of one or more dose reduction techniques (e.g., Automated exposure control, adjustment of the mA and/or kV according to patient size, use of iterative reconstruction technique) TECHNICAL DOCUMENTATION: JOB ID: [id number] 2010 [employer]- All Rights Reserved Reading location - IP/workstation name: [email or web address]
--- NOTE | 2020-01-25 15:30 | RADIOLOGY REPORT (SQ) ---
EXAM DESCRIPTION: CT CERVICAL SPINE WITHOUT IMAGES COMPLETED DATE/TIME: 01/25/2020 2:29 pm REASON FOR STUDY: fall COMPARISON: None. TECHNIQUE: Axial images acquired through the cervical spine without intravenous contrast. Images re viewed with lung, soft tissue and bone windows. Reconstructed coronal and sagittal MPR images review ed. Images stored on PACS. All CT scanners at this facility use dose modulation, iterative reconstruction, and/or weight based d osing when appropriate to reduce radiation dose to as low as reasonably achievable (ALARA). [facility]: Dose Right [facility]: CareDose [facility]: Dose Right [facility]: Teradose 4D [facility]: Smart [employer] RADIATION DOSE: CT Rad equipment meets quality standard of care and radiation dose reduction techniq ues were employed. CTDIvol: 23.2 mGy. DLP: 456 mGy-cm LIMITATIONS: None. FINDINGS: ALIGNMENT: Tilting and or scoliosis apex to the left. MINERALIZATION: Normal. VERTEBRAL BODIES: No fractures or dislocation. DISCS: Multilevel moderate severe to marked disc space narrowing, particularly at C4-C5 through C7-T 1. Degenerative changes involving the visualized upper thoracic spine. FACETS, LATERAL MASSES, POSTERIOR ELEMENTS: Multilevel moderate to moderate severe facet and uncover tebral joint arthrosis. No fractures. No dislocation. No acute findings. HARDWARE: None in the spine. VISUALIZED RIBS: No fractures. LUNG APICES AND SOFT TISSUES: No significant or acute findings. OTHER: No other significant finding. IMPRESSION: 1. No acute osseous findings. 2. Scoliosis and degenerative cervical spondylosis, facet arthrosis, and moderate severe to marked d isc disease. TECHNICAL DOCUMENTATION: JOB ID: [id number] Quality ID # [id number]: Final reports with documentation of one or more dose reduction techniques (e.g., Au tomated exposure control, adjustment of the mA and/or kV according to patient size, use of iterative reconstruction technique) 2010 [email or web address]- All Rights Reserved Reading location - IP/workstation name: [email or web address]
== END 2020-01-25 17:45 | disposition home or self-care (01) ==
LOC: ER 13:01
PROC: 0HQ1XZZ Repair Face Skin, External Approach (ICD-10-PCS; principal; 2020-01-25)
DX: S01.81XA Laceration without foreign body of other part of head, initial encounter (principal); G31.83 Neurocognitive disorder with Lewy bodies; M41.9 Scoliosis, unspecified; D32.0 Benign neoplasm of cerebral meninges; W19.XXXA Unspecified fall, initial encounter; Y92.129 Unspecified place in nursing home as the place of occurrence of the external cause; Z88.8 Allergy status to other drugs, medicaments and biological substances
CPT/HCPCS: 70450; 72125; 99284